=== PATIENT | male | born 1970 | race Caucasian/White ===

== ENCOUNTER 2019-06-08 23:26 | Emergency (ER) | payer BC, OTHER ==
--- NOTE | 2019-06-08 23:58 | RAD ---
XR Ankle Rt 3 View STANDARD HISTORY: Right ankle injury COMPARISON: None. FINDINGS: There is marked soft tissue swelling adjacent to the lateral malleolus. There is anterior t ibial spur formation and slight irregularity to the tip of the medial malleolus and a small bony density seen adjacent to the medial malleolus, I would favor all of these changes probably related to older injuries although the changes along the medial side of the talus could be related to an avulsive injury related to the deltoid ligament. In addition there is a tiny bony density seen along the lateral side of the talus between the fibula and talus, given the soft tissue swelling this could represent a small avulsive injury related to the anterior talofibular ligament. IMPRESSION: Posttraumatic changes as described above.
== END 2019-06-09 01:05 | disposition home or self-care (01) ==
LOC: ERS 23:26
DX: S99.911A Unspecified injury of right ankle, initial encounter (principal); S99.921A Unspecified injury of right foot, initial encounter; I10 Essential (primary) hypertension; W01.0XXA Fall on same level from slipping, tripping and stumbling without subsequent striking against object, initial encounter